=== PATIENT | female | born 1985 | race Caucasian/White ===

== ENCOUNTER 2018-05-01 13:55 | Outpatient (CLI) | payer MEDICAID ==
[2018-05-01 14:41] LABS: ADD UMIC NO; UR ASCORBIC ACID NEGATIVE (NEGATIVE); UR BILIRUBIN (Dip) NEGATIVE (NEGATIVE); UR BLOOD (Dip) NEGATIVE (NEGATIVE); UR CLARITY CLEAR (CLEAR); UR COLOR STRAW (YELLOW); UR GLUCOSE (Dip) NEGATIVE (NEGATIVE); UR KETONES (Dip) NEGATIVE (NEGATIVE); UR LEUKOCYTE ESTERASE (Dip) NEGATIVE Leu/ul (NEGATIVE); UR NITRITE (Dip) NEGATIVE (NEGATIVE); UR TOTAL PROTEIN (Dip) NEGATIVE (NEGATIVE); UR UROBILINOGEN (Dip) NEGATIVE (NEGATIVE)
== END 2018-05-01 18:30 | disposition home or self-care (01) ==
LOC: OBT 13:55 → L-D 13:55 → OBT 18:30
DX: O62.9 Abnormality of forces of labor, unspecified (principal); Z3A.37 37 weeks gestation of pregnancy
CPT/HCPCS: 76818; 81003

== ENCOUNTER 2018-05-20 12:02 | Inpatient (IN) | payer MEDICAID ==
[2018-05-20 14:51] LABS: ADD MAN DIFF? NO
[2018-05-20] MEDS: LACTATED RINGER'S 1,000 ML IV ×2 (14:51→22:12)
[2018-05-20 14:56] LABS: WHITE BLOOD COUNT 9.6 10^3/ul (4.8-10.8)
[2018-05-20 14:56] LABS: BASOPHILS % 0.3 % (0.0-2.0); EOSINOPHILS # 0.1 10^3/ul (0.0-0.5); HEMATOCRIT 38.9 % (37.0-47.0); HEMOGLOBIN 12.8 g/dl (12.0-16.0); LYMPHOCYTES # 1.8 10^3/ul (0.8-2.9); MEAN CORPUSCULAR HEMOGLOBIN 28.6 pg (29.0-33.0); MEAN CORPUSCULAR HGB CONC 32.9 g/dl (32.0-37.0); MEAN PLATELET VOLUME 11.8 fl (7.4-10.4); MONOCYTE # 0.6 10^3/ul (0.3-0.9); MONOCYTES % 6.3 % (0.0-11.0); NEUTROPHILS % 73.1 % (39.0-77.0); PLATELET COUNT 194 10^3/UL (140-415); RED BLOOD COUNT 4.47 10^6/ul (4.20-5.40); RED CELL DISTRIBUTION WIDTH 14.4 % (11.5-14.5)
[2018-05-20] MEDS ORDERED: CARBOPROST 250 MCG INJ IM (15:00)
[2018-05-20] MEDS ORDERED: MISOPROSTOL 200 MCG TAB PR (15:00)
[2018-05-20] MEDS ORDERED: LIDOCAINE 1% (MPF) 30 ML INJ INJ (15:00)
[2018-05-20] MEDS ORDERED: OXYTOCIN 30 UNITS/LR 500 ML IV (15:00)
[2018-05-20] MEDS ORDERED: METHYLERGONOVINE 0.2 MG INJ IM (15:00)
[2018-05-20 15:43] LABS: INR 0.83; PROTIME 11.5 Sec (11.9-14.9); PT RATIO 0.9
[2018-05-20 15:44] LABS: PARTIAL THROMBOPLASTIN TIME 25.9 Sec (23.0-35.0)
[2018-05-20] MEDS: OXYTOCIN 30 UNITS/LR 500 ML IV ×2 (16:41→23:43)
[2018-05-21] MEDS: OXYTOCIN 30 UNITS/LR 500 ML IV (01:04)
[2018-05-21] MEDS: DEXTROSE 5%-LR 1,000 ML IV (02:16)
[2018-05-21] MEDS ORDERED: OXYTOCIN 30 UNITS/LR 500 ML IV (02:30)
[2018-05-21] MEDS ORDERED: DIPHENHYDRAMINE 50 MG INJ IV (02:30)
[2018-05-21] MEDS ORDERED: ONDANSETRON 4 MG INJ IV (02:30)
[2018-05-21] MEDS ORDERED: DIBUCAINE 1% 30 GM OINT TOP (02:30)
[2018-05-21] MEDS ORDERED: WITCH HAZEL/GLYCERIN PAD PR (02:30)
[2018-05-21] MEDS ORDERED: ACETAMINOPHEN 325 MG TAB PO (02:30)
[2018-05-21] MEDS ORDERED: METHYLERGONOVINE 0.2 MG INJ IM (02:30)
[2018-05-21] MEDS ORDERED: ZOLPIDEM 5 MG TAB PO (02:30)
[2018-05-21] MEDS ORDERED: CARBOPROST 250 MCG INJ IM (02:30)
[2018-05-21] MEDS ORDERED: MISOPROSTOL 200 MCG TAB PR (02:30)
[2018-05-21] MEDS: OXYCODONE/ASPIRIN (4.88/325) TAB PO (04:22)
[2018-05-21] MEDS: LANOLIN HPA 1 PKT TOP (04:23)
[2018-05-21] MEDS: BENZOCAINE 20% 56 ML SPRAY TOP (04:23)
[2018-05-21] MEDS: LACTATED RINGER'S 1,000 ML IV* (05:26)
[2018-05-21] MEDS: IBUPROFEN 600 MG TAB PO ×3 (06:02→17:55)
[2018-05-21] MEDS: SENNA/DOCUSATE NA (8.6MG/50MG) TAB PO (17:54)
[2018-05-21 19:17] LABS: RAPID PLASMA REAGIN NONREACTIVE (NR)
[2018-05-22] MEDS: IBUPROFEN 600 MG TAB PO ×3 (05:31→11:40)
[2018-05-22 06:56] LABS: ADD MAN DIFF? NO
[2018-05-22 07:02] LABS: WHITE BLOOD COUNT 8.6 10^3/ul (4.8-10.8)
[2018-05-22 07:02] LABS: BASOPHILS % 0.3 % (0.0-2.0); EOSINOPHILS # 0.2 10^3/ul (0.0-0.5); EOSINOPHILS % 2.6 % (0.0-7.0); HEMATOCRIT 33.5 % (37.0-47.0); LYMPHOCYTES # 2.5 10^3/ul (0.8-2.9); LYMPHOCYTES % 28.9 % (15.0-51.0); MEAN CORPUSCULAR HEMOGLOBIN 29.2 pg (29.0-33.0); MEAN CORPUSCULAR HGB CONC 32.8 g/dl (32.0-37.0); MEAN CORPUSCULAR VOLUME 88.9 fl (82.0-101.0); MEAN PLATELET VOLUME 11.3 fl (7.4-10.4); MONOCYTE # 0.8 10^3/ul (0.3-0.9); MONOCYTES % 9.1 % (0.0-11.0); NEUTROPHILS % 58.6 % (39.0-77.0); PLATELET COUNT 192 10^3/UL (140-415); RED BLOOD COUNT 3.77 10^6/ul (4.20-5.40); RED CELL DISTRIBUTION WIDTH 14.6 % (11.5-14.5)
[2018-05-22] MEDS: DIPHTH/TET/ACEL PERTUSS (ADULT) 0.5 ML VIAL IM* (12:27)
[2018-05-23] MEDS ORDERED: DIPHTH/TET/ACEL PERTUSS (ADULT) 0.5 ML VIAL IM* (09:00)
[2018-05-23] MEDS ORDERED: MEASLES,MUMPS,RUBELLA VACCINE INJ SC* (09:00)
== END 2018-05-22 13:30 | disposition home or self-care (01) | DRG 807 ==
LOC: OBT 12:02 → PP1 05-21 01:41 → L-D 12:02 → OBT 14:00 → L-D 14:00
PROVIDERS: Obstetrics & Gynecology
PROC: 4A1HXCZ Monitoring of Products of Conception, Cardiac Rate, External Approach (ICD-10-PCS; 2018-05-20)
PROC: 10907ZC Drainage of Amniotic Fluid, Therapeutic from Products of Conception, Via Natural or Artificial Opening (ICD-10-PCS; 2018-05-20)
PROC: 10E0XZZ Delivery of Products of Conception, External Approach (ICD-10-PCS; principal; 2018-05-21)
PROC: 3E0234Z Introduction of Serum, Toxoid and Vaccine into Muscle, Percutaneous Approach (ICD-10-PCS; 2018-05-22)
DX: O80 Encounter for full-term uncomplicated delivery (principal); Z37.0 Single live birth; Z3A.40 40 weeks gestation of pregnancy; Z23 Encounter for immunization
CPT/HCPCS: 76815; 76818; 85025; 85610; 85730; 86592; 86850; 86900; 86901; 90715